=== PATIENT | male | born 1980 | race Caucasian/White ===

== ENCOUNTER → 2018-07-27 14:31 | Outpatient (CLI) | payer BC, SELFPAY ==
[2018-07-27 17:39] LABS: Absolute Lymphocyte Count 2.72 X10^3/ul (0.83-4.51); Absolute Neutrophil Count 6.3 X10^3/uL (2.0-7.7); Basophil# 0.02 X10^3/uL; Basophil% 0.2 % (0-1); Eosinophil# 0.31 X10^3/uL; Eosinophils% 3.1 % (0-5); Hematocrit 47.1 % (40-54); Hemoglobin 16.3 g/dl (13.0-16.5); Lymphocyte # 2.72 X10^3/ul (4.0); Lymphocyte % 26.8 % (19-41); Mean Corp Hgb Conc 34.6 g/gl (32-36); Mean Corpuscular Hgb 30.5 pg (27.0-32.0); Mean Platelet Vol. 10.3 fl (6.2-12.0); Monocyte# 0.73 X10^3/uL; Monocyte% 7.2 % (0-10); Neutrophil # 6.32 X10^3/uL (2.7-7.7); Neutrophil % 62.3 % (47-70); Platelet Count 200 K/mm3 (150-450); RBC Distribution Width CV 12.6 % (11.6-14.6); RBC Distribution Width SD 39.8 fl (35.1-43.9); Red Blood Count 5.35 M/mm3 (4.6-6.2); White Blood Count 10.1 K/mm3 (4.4-11.0)
[2018-07-27 17:45] LABS: POSITIVE COUNT NO; POSITIVE DIFFERENTIAL NO; POSITIVE MORPHOLOGY NO
[2018-07-27 18:04] LABS: CRP 9.61 mg/L (0.0-3.0)
[2018-07-27 18:08] LABS: Erythrocyte Sedimentation Rate 15 mm/hr (0-15)
[2018-07-29 04:10] LABS: HEPATITIS B SURFACE AG Negative (Negative); Hepatitis A AB, Total Negative (Negative); Hepatitis A IgM Antibody Negative (Negative); Hepatitis B Core AB IgM Negative (Negative); Hepatitis B Core Ab Total Negative (Negative); Hepatitis C Ab <0.1 s/co ratio (0.0-0.9)
[2018-07-29 11:00] LABS: Hep B Surface Antibodies Non Reactive (.)
[2018-07-29 16:10] LABS: Endomysial Antibody IgA Negative (Negative)
[2018-07-30 11:20] LABS: Immunoglobulin A 182 mg/dL (90-386); t-Transglutaminase IgA <2 U/mL (0-3)
[2018-07-30 11:21] LABS: ANTINUCLEAR ANTIBODIES DIRECT Negative (Negative)
== END ==
PROVIDERS: Family Provider Nurse Practitioner Family; PCP Nurse Practitioner Family; Referring Provider Dermatology Pediatric Dermatology; Visit Provider Dermatology Pediatric Dermatology
DX: L40.0 Psoriasis vulgaris (principal); L40.59 Other psoriatic arthropathy; Z79.899 Other long term (current) drug therapy
CPT/HCPCS: 36415; 82784; 83516; 85025; 85652; 86038; 86140; 86255; 86704; 86705; 86706; 86708; 86709; 86803; 87340

== ENCOUNTER → 2019-11-01 09:08 | Outpatient (CLI) | payer BC, SELFPAY ==
[2019-11-01 10:37] LABS: Anion Gap 6 (5-15); BUN 18 mg/dL (7-18); BUN/Creat Ratio 17.1 RATIO (10-20); Calcium,Total 9.4 mg/dL (8.5-10.1); Chloride 103 mmol/L (98-107); Cholesterol 234 mg/dL (200); Creatinine, Serum 1.05 mg/dL (0.70-1.30); EST Glomerular Filtration Rate 84 mL/min (>60); Est Glom Filt Rate - Afr Amer 102 mL/min (>60); Glucose 355 mg/dL (74-106); High Density Lipoprotein 29 mg/dL; Potassium 4.1 mmol/L (3.5-5.1); Sodium Level 136 mmol/L (136-145); Triglycerides 610 mg/dL
== END ==
LOC: MFPLAB 09:09
PROVIDERS: PCP Family Medicine; Referring Provider Family Medicine; Visit Provider Family Medicine
DX: E11.9 Type 2 diabetes mellitus without complications (principal)
CPT/HCPCS: 36415; 80048; 80061

== ENCOUNTER → 2019-11-17 | Outpatient (CLI) | payer BC, SELFPAY ==
--- NOTE | 2019-11-17 08:45 | LES_PTH ---
PATIENT: GEE GOSS LOC: [facility] U#:[id number] AGE/SX: 39/M ROOM: RE11/17/[address]: Dr. Raf Dubon MD : [id number] BED: DIS: 11/17/2019 SPEC #: [id number] RECD: 11/17/19 10:10 STATUS: RENE FARNAZ #: [id number] ALTON: 11/17/19 08:[address]: Raf Dubon DEPT: SURGICAL PATHOLOGY RECD BY: Adarsh Dixon Tissues: Skin of trunk, NOS Procedures: Surgery Specimen Level IV HEADER OPERATION: Skin excision PRE-OP DIAGNOSIS: Suspicious skin lesion TISSUE SUBMITTED: Right wrist skin lesion MICROSCOPIC DIAGNOSIS Right wrist skin lesion, biopsy: Verrucoid keratosis, inflamed. Early basal cell carcinoma. See comment. AM:yamile 11/18/19 COMMENT Basal cell carcinoma appears to have been completely excised in the planes examined. MICROSCOPIC DESCRIPTION Slides are reviewed. GROSS DESCRIPTION Received in fixative is one container labeled with the patient's name and designated right wrist neoplasm. The specimen consists of a piece of puente-white skin measuring 2.2 x 1.5 x 0.3 cm. The specimen is inked, serially sectioned and submitted entirely in two cassettes. / SJ:rg 11/17/19 TC:0 CPT: 94490
== END | disposition home or self-care (01) ==
LOC: LABSPEC 10:29
PROVIDERS: PCP Family Medicine; Referring Provider Family Medicine; Visit Provider Family Medicine
DX: L82.0 Inflamed seborrheic keratosis (principal)
CPT/HCPCS: 88305

== ENCOUNTER → 2021-02-21 16:39 | Outpatient (CLI) | payer BC, SELFPAY ==
[2021-02-21 18:21] LABS: Microalbumin:Creatinine Ratio 21.8 mg/g CRE (<30 mg/g CRE)
[2021-02-21 18:37] LABS: Anion Gap 9 (5-15); BUN 18 mg/dL (7-18); BUN/Creat Ratio 19.3 RATIO (10-20); Chloride 107 mmol/L (98-107); Cholesterol 210 mg/dL (200); Creatinine, Serum 0.93 mg/dL (0.70-1.30); EST Glomerular Filtration Rate 95 mL/min (>60); Est Glom Filt Rate - Afr Amer 115 mL/min (>60); Glucose 81 mg/dL (74-106); High Density Lipoprotein 35 mg/dL; Sodium Level 139 mmol/L (136-145); Thyroid Stim Hormone (TSH) 2.66 uIU/mL (0.358-3.74); Triglycerides 309 mg/dL; Very Low Density Lipoprotein 62 mg/dL (5-40)
== END ==
LOC: MTLAB 16:41
PROVIDERS: PCP Family Medicine; Referring Provider Family Medicine; Visit Provider Family Medicine
DX: E11.9 Type 2 diabetes mellitus without complications (principal); R63.5 Abnormal weight gain
CPT/HCPCS: 36415; 80048; 80061; 82043; 82570; 84403; 84443

== ENCOUNTER 2021-11-28 08:56 | Outpatient (CLI) | payer BC, SELFPAY ==
[2021-11-28 10:39] LABS: Anion Gap 5 (5-15); BUN 14 mg/dL (7-18); BUN/Creat Ratio 13.1 RATIO (10-20); Calcium,Total 8.9 mg/dL (8.5-10.1); Chloride 106 mmol/L (98-107); Creatinine, Serum 1.07 mg/dL (0.70-1.30); EST Glomerular Filtration Rate 81 mL/min (>60); Est Glom Filt Rate - Afr Amer 98 mL/min (>60); Glucose 136 mg/dL (74-106); Potassium 3.8 mmol/L (3.5-5.1); Sodium Level 139 mmol/L (136-145)
== END 2021-11-28 23:59 | disposition home or self-care (01) ==
LOC: MTLAB 09:00
PROVIDERS: PCP Family Medicine; Referring Provider Family Medicine; Visit Provider Family Medicine
DX: E11.9 Type 2 diabetes mellitus without complications (principal); E34.9 Endocrine disorder, unspecified
CPT/HCPCS: 36415; 80048; 83036; 84403

== ENCOUNTER 2022-01-23 09:38 | Outpatient (CLI) | payer BC, SELFPAY ==
--- NOTE | 2022-01-23 09:50 | RAD_ITS ---
STUDY: X-RAY CHEST REASON FOR EXAM: Male, 41 years old. acute upper respiratory infection of multiple sites TECHNIQUE: PA and lateral. COMPARISON: None. FINDINGS: LUNGS: Minimal patchy opacity in the left lung base likely in the lingula. Right lung clear. No pneumothorax. MEDIASTINUM: Unremarkable. CARDIAC SILHOUETTE: Not enlarged. BONES AND SOFT TISSUES: Degenerative changes in the dorsal spine. No acute abnormalities. RAD/Chest PA and Lateral IMPRESSION: Minimal infiltrate in the lingula suspicious for pneumonia. Electronically Signed: Rosalia Keane MD at 1:34 EDT ,
[2022-01-23 11:56] LABS: Mean Corp Hgb Conc 33.9 g/dL (32-36); Mean Corpuscular Hgb 29.6 pg (27.0-32.0); Mean Corpuscular Volume 87.2 fL (80-94); Mean Platelet Vol. 10.1 fl (6.2-12.0); Platelet Count 198 K/mm3 (150-450); RBC Distribution Width CV 13.3 % (11.6-14.6); RBC Distribution Width SD 41.7 fl (35.1-43.9); Red Blood Count 6.39 M/mm3 (4.6-6.2)
[2022-01-23 12:07] LABS: Anion Gap 10 (5-15); BUN 15 mg/dL (7-18); BUN/Creat Ratio 12.8 RATIO (10-20); Calcium,Total 9.2 mg/dL (8.5-10.1); Chloride 105 mmol/L (98-107); Creatinine, Serum 1.17 mg/dL (0.70-1.30); EST Glomerular Filtration Rate 73 mL/min (>60); Est Glom Filt Rate - Afr Amer 89 mL/min (>60); Glucose 99 mg/dL (74-106); Sodium Level 141 mmol/L (136-145)
[2022-01-23 13:47] LABS: Hematocrit 55.7 % (40-54)
[2022-01-23 13:50] LABS: Hemoglobin 18.9 g/dL (13.0-16.5); Scan Indicated on CBC? Y/N YES- FLAGS NOTED
[2022-01-24 13:27] LABS: Pathologist Review Reviewed
== END 2022-01-23 23:59 | disposition home or self-care (01) ==
PROVIDERS: PCP Family Medicine; Referring Provider Family Medicine; Visit Provider Family Medicine
DX: J06.9 Acute upper respiratory infection, unspecified (principal); Z20.822 Contact with and (suspected) exposure to COVID-19
CPT/HCPCS: 36415; 71046; 80048; 85027; 87635; U0003; U0005